=== PATIENT | female | born 1980 | race Hispanic/Latino ===

== ENCOUNTER 2020-06-10 06:58 | Observation (INO) | payer OTHER ==
[2020-06-03 10:29] LABS: BASOPHILS % (AUTO) 0.5 % (0.0-5.0); EOSINOPHILS % (AUTO) 2.3 % (0.0-8.0); HEMATOCRIT 38.6 % (36-48); LYMPHOCYTES % (AUTO) 31.7 % (21.0-51.0); MEAN CORPUSCULAR HEMOGLOBIN 28.3 pg (27.0-33.0); MEAN CORPUSCULAR HGB CONC 32.6 g/dL (32.0-36.0); MEAN CORPUSCULAR VOLUME 86.5 fL (79-99); MONOCYTES % (AUTO) 8.3 % (3.0-13.0); NEUTROPHILS % (AUTO) 56.9 % (40.0-77.0); PLATELET COUNT (AUTO) 299 K/uL (130-400); RED BLOOD CELL COUNT(AUTO) 4.46 MIL/uL (4.00-5.50); RED CELL DISTRIBUTION WIDTH 14.2 % (11.0-15.5); WHITE BLOOD COUNT (AUTO) 3.9 K/uL (4.8-10.8)
[2020-06-09 10:42] VITALS: BP 115/65
[2020-06-10] VITALS (24 sets, daily range): BP systolic 87–134; BP diastolic 44–69
[~2020-06-10] VITALS: Ht 158.8 cm; Wt 67.0 kg
[~2020-06-10 06:58] MED LIST: CEFAZOLIN SODIUM 1 GM VIAL IVP SCH; LACTATED RINGERS 1000ML 1,000 ML IV SCH
--- NOTE | 2020-06-10 08:00 | NUR ---
preop pt arrived ambulatory in no distress. pt here for lap vag hysterectomy. pt oriented to room and call light. will continue to monitor pt
[2020-06-10] MEDS ORDERED: LIDOCAINE PF 2% 5ML ABBOJECT ONE (08:40)
[2020-06-10] MEDS ORDERED: DURAMORPH PF1 MG/ML 10ML AMP IV ONE (08:41)
[2020-06-10] MEDS ORDERED: FENTANYL CITRATE PF 50 MCG/1 ML 2ML VIAL ONE (08:41)
[2020-06-10] MEDS ORDERED: SUCCINYLCHOLINE CHLORIDE 20 MG/ML 10 ML VIAL ONE (08:41)
[2020-06-10] MEDS ORDERED: ROCURONIUM 10MG/1ML SYR 10 MG/ML ML ONE ×2 (08:41→08:46)
[2020-06-10] MEDS ORDERED: PROPOFOL 10 MG/ML 20ML VIAL IV ONE (08:41)
[2020-06-10] MEDS ORDERED: MIDAZOLAM HCL 1 MG/ML 2ML VIAL ONE (08:42)
[2020-06-10] MEDS ORDERED: CALDOLOR 800MG+NS 250ML 250 ML IV ONE (08:50)
[2020-06-10] MEDS ORDERED: EPHEDRINE SULFATE 50 MG/ML AMPULE ONE (09:08)
[2020-06-10] MEDS ORDERED: ONDANSETRON HCL 4 MG/2 ML VIAL ONE (09:41)
[2020-06-10] MEDS ORDERED: DEXAMETHASONE SOD PHOSPHATE 10MG/ML 1ML VIAL ONE (09:41)
[2020-06-10] MEDS ORDERED: GLYCOPYRROLATE 1 MG/5 ML SYRINGE ONE (10:31)
[2020-06-10] MEDS ORDERED: NEOSTIGMINE 5MG/5ML SYR IV ONE (10:31)
[2020-06-10] MEDS ORDERED: DOCUSATE SODIUM 100 MG CAP PO PRN (12:30)
[2020-06-10] MEDS ORDERED: PROMETHAZINE HCL 25 MG/ML 1ML AMPULE IM PRN ×2 (12:30)
[2020-06-10] MEDS ORDERED: BISACODYL 10 MG SUPP.RECT RC PRN (12:30)
[2020-06-10] MEDS ORDERED: ACETAMINOPHEN-CODEINE 300/30MG TAB PO PRN (12:30)
[2020-06-10] MEDS ORDERED: IBUPROFEN 600 MG TABLET PO PRN (12:30)
[2020-06-10] MEDS ORDERED: ONDANSETRON HCL 4 MG/2 ML VIAL IVP PRN (12:30)
[2020-06-10] MEDS ORDERED: SIMETHICONE 80 MG TAB.CHEW PO PRN (12:30)
[2020-06-10] MEDS ORDERED: MEPERIDINE-PF 75 MG/ML SYG IM PRN (12:30)
[2020-06-10] MEDS: DEXTROSE 5 %-0.45 % NACL 1,000 ML IV PRN (16:47)
[2020-06-11] MEDS: DEXTROSE 5 %-0.45 % NACL 1,000 ML IV PRN (00:11)
[2020-06-11 03:16] VITALS: BP 89/46
[2020-06-11] MEDS ORDERED: CALDOLOR 800MG+NS 250ML 250 ML IV ONE (05:41)
--- NOTE | 2020-06-11 06:00 | NUR ---
ACTIVITY/HERNANDEZ CATHETER F/C REMOVED, INTACT, ASSISTED OUT OF BED TO CHAIR, TOLERATED WELL, INSTRUCTED TO CALL FOR ASSISTANCE WHEN SHE GETS URGE TO VOID, ACKNOWLEDGES UNDERSTANDING Addendum: 06/11/20 at 0641 by ALVARADO ANSARI LVN Amended: Links added.
[2020-06-11 06:51] LABS: HEMATOCRIT 36.7 % (36-48); MEAN CORPUSCULAR HEMOGLOBIN 28.1 pg (27.0-33.0); MEAN CORPUSCULAR HGB CONC 32.4 g/dL (32.0-36.0); MEAN CORPUSCULAR VOLUME 86.8 fL (79-99); RED BLOOD CELL COUNT(AUTO) 4.23 MIL/uL (4.00-5.50)
[2020-06-11] MEDS ORDERED: CALDOLOR 800MG+NS 250ML 250 ML IV PRN (07:15)
[2020-06-11] MEDS ORDERED: MEPERIDINE-PF 25 MG/ML SYG IV PRN (07:15)
[2020-06-11] MEDS ORDERED: ONDANSETRON HCL 4 MG/2 ML VIAL IVP PRN (07:15)
[2020-06-11] MEDS ORDERED: DiphenhydrAMINE HCL 50 MG/ML VIAL IVP PRN (07:15)
[2020-06-11] MEDS ORDERED: NALOXONE HCL 0.4 MG/1 ML ML IVP PRN ×3 (07:15)
[2020-06-11] MEDS ORDERED: LORATADINE 10 MG TABLET PO PRN (07:30)
[2020-06-11 07:41] VITALS: BP 103/51
--- NOTE | 2020-06-11 11:00 | NUR ---
DISCHARGE ORDER OBTAINED FROM DR. CONWAY AND UPDATE ON PATIENT STATUS PROVIDED AT THIS TIME. HAS BEEN WALKING IN HALLWAY SEVERAL TIMES AND HAS ALSO VOIDED 2-3 TIME AND OVER 200CC EACH TIME.
[2020-06-11 11:32] VITALS: BP 110/68
[2020-06-11] MEDS ORDERED: SIMETHICONE 80 MG TAB.CHEW PO PRN (11:45)
--- NOTE | 2020-06-11 12:33 | NUR ---
PATIENT STATES READY TO GO BUT HAS NOT BEEN ABLE TO PASS GAS ONLY VOIDING WELL. AGREED TO GET A DULCOLAX SUPPOSITORY AND WAS ADMINISTERED AT THIS TIME. TOLERATED SUPPOSITORY WELL.
--- NOTE | 2020-06-11 15:00 | NUR ---
VERBALIZED BEING ABLE TO PASS GAS AND HAD A SMALL BOWEL MOVEMENT.
--- NOTE | 2020-06-11 15:25 | NUR ---
PATIENT WAS TAKEN VIA W/C TO FAMILY VEHICLE AND WAS DISCHARGED TO HER SPOUSE IN STABLE CONDITION. PATIENT STABLE AND DENIES PAIN.
== END 2020-06-11 15:25 | disposition home or self-care (01) ==
LOC: DAH 06:58 → WSH 06:59
PROVIDERS: ADMIT Obstetrics & Gynecology; ATTEND Obstetrics & Gynecology
DX: N92.1 Excessive and frequent menstruation with irregular cycle (principal); Z20.828 Contact with and (suspected) exposure to other viral communicable diseases; N94.6 Dysmenorrhea, unspecified; R10.2 Pelvic and perineal pain
CPT/HCPCS: 36415 ×3; 58260; 84703; 85025; 85027; 86850 ×2; 86900 ×2; 86901 ×2; 96361 ×2; 96365; 96375; A4213; A4215; A4221; A4222; A4223; A4351; A4510; A4663; A4930 ×2; A6260; C9803; G0378 ×15; J0330; J0690; J1100; J1741 ×2; J2001; J2250; J2274; J2405 ×2; J2704; J2710; J3010; J3490 ×2; J7030 ×2; J7120; U0003